=== PATIENT | female | born 1985 | race Asian ===

== ENCOUNTER 2019-05-19 16:42 | Emergency (ER) | payer BC ==
[~2019-05-19] VITALS: Ht 157.5 cm; Wt 47.6 kg
[2019-05-19] MEDS ORDERED: NACL 0.9% 1,000 ML IV ONE (16:46)
[2019-05-19] MEDS ORDERED: ONDANSETRON HCL 4 MG/2 ML VIAL IVP ONE (17:00)
[2019-05-19] MEDS ORDERED: KETOROLAC TROMETHAMINE 30 MG VIAL IVP ONE (17:00)
[2019-05-19] MEDS ORDERED: DIPHENHYDRAMINE INJ 50 MG/ML VIAL IVP ONE (17:00)
[2019-05-19 17:06] VITALS: BP_SYST 123
--- NOTE | 2019-05-19 17:08 | NUR ---
Patient to ER bed 8 to gown for evaluation. Side rails up. Report given to Luis HARRIS.
[2019-05-19 17:15] LABS: HEMATOCRIT 32.8 % (36-48); MEAN CORPUSCULAR HEMOGLOBIN 22 pg (27-31); MEAN CORPUSCULAR HGB CONC 32 % (32-36); MEAN CORPUSCULAR VOLUME 70 fL (79.0-98.0)
--- NOTE | 2019-05-19 17:16 | NUR ---
PATIENT PRESENTS TO THE ER WITH HX OF LEFT OCCIPITAL HEAD PAIN WITH N/V AND LIGHT SENSITIVITY FOR 10 DAYS; NO TRAUMA, NO OTHER REMARKABLE S/S
[2019-05-19 17:20] LABS: BASOPHILS % (AUTO) 0.2 % (0.0-2.0); EOSINOPHILS % (AUTO) 0.1 % (0.0-4.0); HEMOGLOBIN 10.4 g/dL (12.0-16.0); LYMPHOCYTES # (AUTO) 1.3 K/uL (1.0-5.5); LYMPHOCYTES % (AUTO) 23.7 % (20.5-51.5); MONOCYTES # (AUTO) 0.3 K/uL (0.0-1.0); MONOCYTES % (AUTO) 6.3 % (1.7-9.3); NEUTROPHILS # (AUTO) 3.8 K/uL (1.8-7.7); NEUTROPHILS % (AUTO) 69.7 % (40.0-70.0); PLATELET COUNT (AUTO) 239 K/uL (130-430); RED BLOOD CELL COUNT(AUTO) 4.71 MIL/uL (4.2-6.2); RED CELL DISTRIBUTION WIDTH 18.1 % (9.0-15.0); WHITE BLOOD COUNT (AUTO) 5.5 K/uL (4.8-10.8)
[2019-05-19 17:24] LABS: CALCIUM 9.2 mg/dL (8.4-11.0); CREATININE 0.54 mg/dL (0.55-1.30); POTASSIUM 4.3 mmol/L (3.5-5.1)
[2019-05-19 17:30] LABS: ALBUMIN 4.4 g/dL (3.4-4.8); TOTAL BILIRUBIN 1.2 mg/dL (0.0-1.0)
[2019-05-19 17:35] LABS: BILIRUBIN,URINE NEGATIVE (NEGATIVE); BLOOD, URINE NEGATIVE (NEGATIVE); CLARITY/URINE CLEAR (CLEAR); COLOR,URINE YELLOW (YELLOW); GLUCOSE,URINE NEGATIVE (NEGATIVE); KETONES,URINE 3+ (NEGATIVE); LEUKOCYTE ESTERASE ,URINE NEGATIVE (NEGATIVE); NITRITE, URINE NEGATIVE (NEGATIVE); PROTEIN URINE 2+ (NEGATIVE); UROBILINOGEN,URINE 0.2 (0.2-1.0)
[2019-05-19 17:40] LABS: BACTERIA,URINE FEW /HPF (None Seen); RBC,URINE 0-3 /HPF (0-3); WBC,URINE 0-3 /HPF (0-3)
--- NOTE | 2019-05-19 17:48 | NUR ---
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
--- NOTE | 2019-05-19 18:03 | NUR ---
REASSESSMENT; PATIENT STATES HER SYMPTOMS ARE RESOLVED; (IV PLACED #20 LAC WITHOUT INCIDENT); DISPOSITION PENDING
--- NOTE | 2019-05-19 18:07 | NUR ---
ANTYPYRETIC HELD PER ERMD
[2019-05-19 18:30] VITALS: BP_SYST 120
--- NOTE | 2019-05-19 18:32 | NUR ---
Patient given written and verbal discharge instructions and verbalizes understanding. ER MD discussed with patient the results and treatment provided. Patient in stable condition. ID arm band removed. IV catheter removed intact and dressing applied, no active bleeding. Rx of TYLENOL/ZOFRAN given. Patient educated on pain management and to follow up with PMD. Pain Scale . Opportunity for questions provided and answered. Medication side effect fact sheet provided.
== END 2019-05-19 18:32 | disposition home or self-care (01) ==
LOC: SED 16:42
DX: G43.909 Migraine, unspecified, not intractable, without status migrainosus (principal); M79.18 Myalgia, other site; R11.2 Nausea with vomiting, unspecified
CPT/HCPCS: 36415; 80053; 81000; 85025; 86710; 96361; 96374; 96375; 99284; J1200; J1885; J2405; J7030

== ENCOUNTER 2019-05-21 12:45 | Emergency (ER) | payer BC ==
[~2019-05-21] VITALS: Ht 157.5 cm; Wt 47.6 kg
[2019-05-21 12:45] VITALS: BP_SYST 120
[2019-05-21] MEDS ORDERED: ETOMIDATE 20 MG/ 10 ML VIAL (AMIDATE) IVP ONE (12:46)
[2019-05-21] MEDS ORDERED: VECURONIUM BROMIDE 10 MG/VIAL (NORCURON) IV ONE (12:46)
[2019-05-21] MEDS ORDERED: NACL 0.9% 1,000 ML IV ONE (13:30)
[2019-05-21] MEDS ORDERED: PROCHLORPERAZINE EDISYLATE 10 MG/2 ML VIAL IVP ONE (13:30)
[2019-05-21] MEDS ORDERED: DIPHENHYDRAMINE INJ 50 MG/ML VIAL IVP ONE (13:30)
[2019-05-21 14:17] LABS: BASOPHILS % (AUTO) 0.3 % (0.0-2.0); HEMATOCRIT 30.7 % (36-48); HEMOGLOBIN 9.8 g/dL (12.0-16.0); LYMPHOCYTES # (AUTO) 0.5 K/uL (1.0-5.5); LYMPHOCYTES % (AUTO) 3.9 % (20.5-51.5); MEAN CORPUSCULAR HEMOGLOBIN 22 pg (27-31); MEAN CORPUSCULAR HGB CONC 32 % (32-36); MEAN CORPUSCULAR VOLUME 69 fL (79.0-98.0); MONOCYTES # (AUTO) 0.5 K/uL (0.0-1.0); MONOCYTES % (AUTO) 4.5 % (1.7-9.3); NEUTROPHILS # (AUTO) 10.6 K/uL (1.8-7.7); NEUTROPHILS % (AUTO) 91.3 % (40.0-70.0); PLATELET COUNT (AUTO) 268 K/uL (130-430); RED BLOOD CELL COUNT(AUTO) 4.43 MIL/uL (4.2-6.2); WHITE BLOOD COUNT (AUTO) 11.7 K/uL (4.8-10.8)
[2019-05-21 14:28] LABS: CALCIUM 8.1 mg/dL (8.4-11.0); CREATININE 0.57 mg/dL (0.55-1.30); POTASSIUM 3.1 mmol/L (3.5-5.1)
[2019-05-21 14:34] LABS: ALBUMIN 4.1 g/dL (3.4-4.8)
[2019-05-21] MEDS ORDERED: levETIRAcetam 1,000 MG IV BAG 100 ML IV ONE (15:00)
[2019-05-21] MEDS ORDERED: MANNITOL 25% 12.5GM/50 ML VIAL IVP ONE (15:00)
[2019-05-21 15:09] LABS: ERYTHROCYTE SEDIMENTATION RATE 6 MM/HR (0-20)
[2019-05-21] MEDS ORDERED: LORazepam 2 MG/ML VIAL IVP ONE ×2 (15:45→16:00)
[2019-05-21] MEDS ORDERED: PROPOFOL DRIP 100 ML IV ONE (15:45)
[2019-05-21] MEDS ORDERED: LORazepam 2 MG/ML VIAL ONE (15:52)
[2019-05-21 16:09] LABS: PROTHROMBIN TIME 10.3 SECS (9.5-12.5)
[2019-05-21 16:48] VITALS: BP_SYST 134
== END 2019-05-21 16:48 | disposition short-term general hospital (02) ==
LOC: SED 12:45
DX: I62.00 Nontraumatic subdural hemorrhage, unspecified (principal); G43.909 Migraine, unspecified, not intractable, without status migrainosus
CPT/HCPCS: 31500; 36415; 36600; 70450; 71045; 80053; 82803; 85025; 85610; 85651; 85730; 96361; 96365; 96375; 99291; J0780; J1200; J1953; J2060; J2150; J2704; J3490 ×2; J7030